=== PATIENT | female | born 1985 | race Caucasian/White ===

== ENCOUNTER 2016-11-05 21:15 | Emergency (ER) | payer BC ==
[~2016-11-05] VITALS: Ht 152.4 cm; Wt 81.6 kg
[2016-11-05 21:23] VITALS: BP 94/41; PULSE 108; RESP 22; TEMP 98.6; O2SAT 100
--- NOTE | 2016-11-05 21:28 | NUR ---
Patient to ER bed 5 to gown for evaluation. Side rails up. Report given to Ana GUTIERREZ.
[2016-11-05] MEDS ORDERED: LORazepam 1 MG TABLET PO ONE (21:30)
--- NOTE | 2016-11-05 21:30 | NUR ---
Dr Martinez at bedside examining patient
--- NOTE | 2016-11-05 21:32 | NUR ---
Pt brought by self, A&Ox4, pt states he woke up with SOB and heart racing, skin pink and warm, cap refill <3, VSS.
[2016-11-05 21:57] LABS: BASOPHILS # (AUTO) 0.1 K/uL (0.0-0.2); BASOPHILS % (AUTO) 0.9 % (0.0-2.0); EOSINOPHILS # (AUTO) 0.3 K/uL (0.0-0.4); EOSINOPHILS % (AUTO) 3.4 % (0.0-4.0); HEMATOCRIT 38.8 % (36-48); HEMOGLOBIN 13.1 g/dL (12.0-16.0); LYMPHOCYTES # (AUTO) 3.2 K/uL (1.0-5.5); LYMPHOCYTES % (AUTO) 35.9 % (20.5-51.5); MEAN CORPUSCULAR HEMOGLOBIN 27 pg (27-31); MEAN CORPUSCULAR HGB CONC 34 % (32-36); MEAN CORPUSCULAR VOLUME 81 fL (79.0-98.0); MONOCYTES # (AUTO) 0.5 K/uL (0.0-1.0); MONOCYTES % (AUTO) 5.5 % (1.7-9.3); NEUTROPHILS # (AUTO) 4.9 K/uL (1.8-7.7); NEUTROPHILS % (AUTO) 54.3 % (40.0-70.0); PLATELET COUNT (AUTO) 279 K/uL (130-430); RED CELL DISTRIBUTION WIDTH 13.9 % (9.0-15.0)
[2016-11-05 22:03] LABS: CALCIUM 8.7 mg/dL (8.4-11.0); CREATININE 0.69 mg/dL (0.55-1.30); POTASSIUM 3.1 mmol/L (3.5-5.1)
[2016-11-05 22:12] LABS: ALBUMIN 3.5 g/dL (3.4-4.8); TOTAL BILIRUBIN 0.2 mg/dL (0.0-1.0); TOTAL PROTEIN, SERUM 7.1 g/dL (6.4-8.3)
[2016-11-05] MEDS ORDERED: POTASSIUM CHLORIDE 20 MEQ TAB.PRT.SR PO ONE (22:30)
--- NOTE | 2016-11-05 23:00 | NUR ---
Patient given written and verbal discharge instructions and verbalizes understanding. ER MD Martinez discussed with patient the results and treatment provided. Patient in stable condition. ID arm band removed. No rx given. Patient educated on pain management and to follow up with PMD. Pain Scale 0/10. Opportunity for questions provided and answered.
[2016-11-05 23:01] VITALS: BP 102/61; PULSE 92; RESP 18; TEMP 98.3; O2SAT 98
== END 2016-11-05 23:00 | disposition home or self-care (01) ==
LOC: SED 21:15
DX: E87.6 Hypokalemia (principal); R73.9 Hyperglycemia, unspecified; F41.9 Anxiety disorder, unspecified
CPT/HCPCS: 36415; 80053; 81025; 85025; 93005; 99285

== ENCOUNTER 2018-02-02 14:13 | Emergency (ER) | payer BC, OTHER ==
[~2018-02-02] VITALS: Ht 152.4 cm; Wt 83.9 kg
[2018-02-02 14:24] VITALS: BP_SYST 136
[2018-02-02] MEDS ORDERED: METOCLOPRAMIDE HCL 10 MG TABLET PO ONE (15:00)
[2018-02-02] MEDS ORDERED: KETOROLAC TROMETHAMINE 60 MG/2 ML VIAL IM ONE (15:00)
[2018-02-02 16:30] VITALS: BP_SYST 124
== END 2018-02-02 16:30 | disposition home or self-care (01) ==
LOC: SED 14:13
DX: J06.9 Acute upper respiratory infection, unspecified (principal); R51 Headache; F41.9 Anxiety disorder, unspecified
CPT/HCPCS: 96372; 99283; J1885; J8597

== ENCOUNTER 2019-05-20 22:50 | Emergency (ER) | payer BC, OTHER ==
[~2019-05-20] VITALS: Ht 152.4 cm; Wt 97.5 kg
[2019-05-20 23:15] VITALS: BP_SYST 147
--- NOTE | 2019-05-20 23:15 | NUR ---
Patient to ER bed 7 to gown for evaluation. Side rails up. Report given to HOWARD GUTIERREZ.
--- NOTE | 2019-05-20 23:16 | NUR ---
ER at bedside examining patient.
--- NOTE | 2019-05-20 23:29 | NUR ---
comfort measures applied
--- NOTE | 2019-05-20 23:34 | NUR ---
Patient given written and verbal discharge instructions and verbalizes understanding. ER MD discussed with patient the results and treatment provided. Patient in stable condition. ID arm band removed. NO Rx of given. Patient educated on pain management and to follow up with PMD. Pain Scale 0/10. Opportunity for questions provided and answered. Medication side effect fact sheet provided.
[2019-05-20 23:36] VITALS: BP_SYST 140
== END 2019-05-20 23:36 | disposition home or self-care (01) ==
LOC: SED 22:50
DX: R22.41 Localized swelling, mass and lump, right lower limb (principal); I10 Essential (primary) hypertension
CPT/HCPCS: 99281